=== PATIENT | female | born 1985 | race Two or more races ===

== ENCOUNTER 2016-07-03 09:23 | Emergency (ER) | payer BC ==
[2016-07-03 09:39] VITALS: RESP 18; O2SAT 95
--- NOTE | 2016-07-03 10:40 | UCPHY ---
H & P Patient Type: New Chief Complaint Nursing Narrative: SORE THROAT FOR 2 DAYS, DENIES FEVERS Time Seen by Provider: 07/03/16 10:28 HPI/ROS: CHIEF COMPLAINT: Sore throat HISTORY OF PRESENT ILLNESS: The patient is a 31-year-old healthy female who comes to the Urgent Care complaining of a sore throat for 5 days. She has not had a fever. No cough. No runny nose. Mild ear pain. No dyspnea. No chest pain no sick contacts. REVIEW OF SYSTEMS: Constitutional: denies: chills, fever, recent illness, recent injury EENTM: See HPI Respiratory: denies: cough, shortness of breath Cardiac: denies: chest pain, irregular heart rate, lightheadedness, palpitations Gastrointestinal/Abdominal: denies: abdominal pain, diarrhea, nausea, vomiting, blood streaked stools Genitourinary: denies: dysuria, frequency, hematuria, pain Musculoskeletal: denies: joint pain, muscle pain Skin: denies: lesions, rash, jaundice, bruising Neurological: denies: headache, numbness, paresthesia, tingling, dizziness, weakness Hematologic/Lymphatic: denies: blood clots, easy bleeding, easy bruising Immunologic/allergic: denies: HIV/AIDS, transplant EXAM: GENERAL: Well-appearing, well-nourished and in no acute distress. HEAD: Atraumatic, normocephalic. EYES: Pupils equal round and reactive to light, extraocular movements intact, sclera anicteric, conjunctiva are normal. ENT: Oropharynx erythematous with anterior cervical lymphadenopathy , mild bilateral tympanic membrane effusions NECK: Normal range of motion, supple without lymphadenopathy or JVD. LUNGS: Breath sounds clear to auscultation bilaterally and equal. No wheezes rales or rhonchi. HEART: Regular rate and rhythm without murmurs, rubs or gallops. ABDOMEN: Soft, nontender, normoactive bowel sounds. No guarding, no rebound. No masses appreciated. BACK: No CVA tenderness, no spinal tenderness, step-offs or deformities EXTREMITIES: Normal range of motion, no pitting or edema. No clubbing or cyanosis. NEUROLOGICAL: Cranial nerves II through XII grossly intact. Normal speech, normal gait. 5/5 strength, normal movement in all extremities, normal sensation PSYCH: Normal mood, normal affect. SKIN: Warm, dry, normal turgor, no visible rashes or lesions. Source: Patient Exam Limitations: No limitations - Personal History LMP (Females 10-55): 8-14 Days Ago - Medical/Surgical History Hx Asthma: No Hx Chronic Respiratory Disease: No Hx Diabetes: No Hx Cardiac Disease: No Hx Renal Disease: No Hx Cirrhosis: No Hx Alcoholism: No Other PMH: DENIES - Family History Significant Family History: No pertinent family hx - Social History Smoking Status: Never smoked Alcohol Use: Sober Drug Use: None Constitutional: Initial Vital Signs Temperature (C) 36.7 C 07/03/16 09:37 Heart Rate 77 07/03/16 09:37 Respiratory Rate 18 07/03/16 09:37 Blood Pressure 121/86 H 07/03/16 09:37 O2 Sat (%) 95 07/03/16 09:37 O2 Delivery Mode Room Air Allergies/Adverse Reactions: No Known Allergies Allergy (Unverified 07/03/16 10:45) Home Medications: Medication Instructions Recorded AZITHROMYCIN [Z-PACK] 250 mg PO DAILY #6 tab 07/03/16 Medical Decision Making ED Course/Re-evaluation: Patient's rapid strep is negative average her symptoms are classic for strep throat. She does not have any other obvious source. I will start her on azithromycin. She is aware that the PCR will return tomorrow and she may call for the results. Differential Diagnosis: Partial list of the Differential diagnosis considered include but were not limited to; strep throat, viral pharyngitis, upper respiratory tract infection and although unlikely based on the history and physical exam, I also considered pneumonia, bronchitis, meningitis, otitis media. I discussed these differential diagnoses and the plan with the patient as well as the usual and expected course. The patient understands that the diagnosis is provisional and that in medicine we are not always correct and that further workup is often warranted. Usual and customary warnings were given. All of the patient's questions were answered. The patient was instructed to return to the emergency department should the symptoms at all worsen or return, otherwise to followup with the physician as we discussed. - Data Points Laboratory Results: 07/03/16 07/03/16 Unknown 09:25 Group A Strep Screen NEGATIVE (NEGATIVE) Group A Strep DNA Pending Departure - Departure Disposition: Home, Routine, Self-Care Clinical Impression: Pharyngitis Qualifiers: Pharyngitis/tonsillitis etiology: unspecified etiology Qualified Code(s): J02.9 - Acute pharyngitis, unspecified Condition: Fair Instructions: Pharyngitis (ED) Referrals: Maria A Clifton MD [Medical Doctor] - As per Instructions Prescriptions: AZITHROMYCIN [Z-PACK] 250 mg PO DAILY #6 tab - PQRS PQRS Measurement: Not applicable
[2016-07-03 10:47] VITALS: BP 115/64; PULSE 71; TEMP 97.9
== END 2016-07-03 10:49 | disposition home or self-care (01) ==
LOC: CED 09:23
DX: J02.9 Acute pharyngitis, unspecified (principal)
CPT/HCPCS: 87880-PO; 99204-PO; G0463-PO

== ENCOUNTER 2018-01-23 17:00 | Inpatient (IN) | payer OTHER ==
--- NOTE | 2018-01-23 15:05 | PDGENHP ---
History and Physical - Chief Complaint IOL, new dx IUGR, abnormal dopplers - History of Present Illness Kaitlin is a 32 yo G1 at 39w3d by PRASANNA of 01/27/18 who I saw in clinic today regarding new diagnosis of IUGR by US today. Had been 19% at 20 wk US, repeated at 33 wks at stable at 18%. No plan to repeat but noted to be measuring small this week at 39 wk visit and US now shows EFW 3% with AC < 2% and elevated dopplers. Normal fluid, reassuring NST. I did recommend IOL given that she's > 39 wks. SCE two days ago FT and long. Otherwise feeling well. otherwise uncomplicated. labs: O Pos Antibody negative HIV/HepB/RPR neg Rubella IMMUNE Standard panel neg GC/C neg NIPT normal H/H 20 wks 12.4/33.5 Glucola 90 GBS negative Did get Flu shot and TDaP History Information - Allergies/Home Medication List Allergies/Adverse Reactions: No Known Allergies Allergy (Unverified 01/23/18 18:40) Home Medications: Calcium Carbonate [Tums 500MG (*)] PRN 01/23/18 [Last Taken 1 Day Ago ~01/22/18] Ferrous Sulfate [Slow Fe] 142 mg PO 01/23/18 [Last Taken 1 Day Ago ~01/22/18] No.137/Iron/Folic Acd [ Vitamin Tablet] 1 each PO 01/23/18 [ Last Taken 01/23/18] Psyllium Husk [Metamucil] 660 gm PO PRN 01/23/18 [Last Taken 01/23/18] I have personally reviewed and updated: family history, medical history, social history, surgical history - Past Medical History no pertinent PMH - Surgical History Reports: no pertinent surgical hx - Family History Positive for: non-pertinent - Social History Smoking Status: Never smoked Alcohol Use: None Review of Systems Review of Systems: ROS: 10pt was reviewed & negative except for what was stated in HPI & below Physical Exam Physical Exam: SCE closed/long/-2, very anterior cervix Constitutional: no apparent distress, appears nourished, not in pain Respiratory: no respiratory distress Skin: warm, normal color Musculoskeletal: full muscle strength Psychiatric: interacting appropriately Lab Data & Imaging Review 01/23/18 19:15 Assessment & Plan Assessment: 32 yo G1 at 39w3d presents for IOL due to new dx of IUGR w/ abnormal dopplers. IOL: - Cervidil placed at 1920, will be removed at 0600 and repeat SCE. Decision with BP re further ripening vs Pitocin. - GBS negative. - CEFM while ripening, also due to IUGR. Cat I tracing on arrival. - Open to epidural. - Rh pos, Rubella immune. JM
[2018-01-23] MEDS ORDERED: LR 1,000 ML IV PRN (18:39)
[2018-01-23] MEDS ORDERED: AMMONIA AROMATIC 1 EACH AMP IH PRN (18:39)
[2018-01-23] MEDS ORDERED: EPSOM SALT 454 GM TP PRN (18:39)
[2018-01-23] MEDS ORDERED: MISOPROSTOL 200 MCG TAB PO PRN (18:39)
[2018-01-23] MEDS ORDERED: DINOPROSTONE 10 MG VAG SUPP VG ONE (18:39)
[2018-01-23] MEDS ORDERED: IBUPROFEN 600 MG TAB PO PRN (18:39)
[2018-01-23] MEDS ORDERED: OXYTOCIN/RINGERS LACTATE 1,000 ML IV PRN (18:39)
[2018-01-23] MEDS ORDERED: LIDOCAINE 1% 300 MG/30 ML SDV SC PRN (18:39)
[2018-01-23] MEDS ORDERED: TERBUTALINE SULFATE 1 MG/ML VIAL IV PRN (18:39)
[2018-01-23] MEDS ORDERED: OLIVE OIL 118 ML BTL MISC PRN (18:39)
[2018-01-23 19:36] LABS: PLATELET COUNT 176 10^3/uL (150-400)
--- NOTE | 2018-01-24 09:54 | OBPROG ---
Labor Progress Note Assessment/Plan: Assessment: 32 y/o @ 39 4/7 IOL secondary to IUGR. Plan: Deleon placed easily this am. Will begin pitocin augmentation now and re check in several hours. status is reassuring. 01/24/18 09:54 Subjective/Intrapartum Course: 01/24/18 09:25 Pt rested overnight with the cervidil. She took a shower and had breakfast and is ready for this am. She denies ZUNIGA scotomata, abdominal pain and overall feels well. Good FM. Objective: 01/23/18 19:15 Patient ABO/Rh O POSITIVE 01/23/18 19:15 - SVE Dilation (cm): 1 Effacement (%): Less than 50 Station: -2 Membranes: Intact - Contraction Pattern Assessment Current Contraction Pattern: Irregular - FHR Assessment Ny FHR (bpm): 140 FHR Pattern Variability: Moderate FHR Category: 1 - Procedures Non-surgical Procedures: Other (Specify) (deleon catheter placed with sterile technique. 40 cc inter-uterine placed) - AP Antepartum Course: 01/24/18 09:28 No significant pre venkat risk factors until 39 5/7 weeks. Ultrasound demonstrated EFW < 3% with elevated dopplers > 90%. Decision made to proceed with IOL Oxytocin Orders Assessment - Pre-Induction/Augmentation Assessment Gestational Age: 39 week(s) and 3 day(s) ICD10 Worksheet Patient Problems: Problems Problem Status Onset IUGR (intrauterine growth restriction) affecting care of mother Acute - ICD10 Problem Qualifiers (1) IUGR (intrauterine growth restriction) affecting care of mother Qualifiers: Fetus number: single or unspecified fetus
[2018-01-24] MEDS ORDERED: LR 500 ML IV PRN (09:57)
[2018-01-24] MEDS ORDERED: OXYTOCIN/RINGERS LACTATE 500 ML IV SCH (10:00)
[2018-01-24] MEDS ORDERED: OLIVE OIL 118 ML BTL ONE (12:10)
[2018-01-24] MEDS ORDERED: LIDOCAINE 1% 300 MG/30 ML SDV ONE (12:10)
[2018-01-24] MEDS ORDERED: AMMONIA AROMATIC 1 EACH AMP IH ONE (12:11)
[2018-01-24] MEDS ORDERED: MISOPROSTOL 200 MCG TAB ONE (12:11)
[2018-01-24] MEDS ORDERED: TERBUTALINE SULFATE 1 MG/ML VIAL ONE (12:11)
--- NOTE | 2018-01-24 12:39 | OBPROG ---
Labor Progress Note Assessment/Plan: Assessment: 32 y/o @ 39 4/7 IOL secondary to IUGR. Plan: Good progress with deleon and pitocin. Now SROM and building a good contraction pattern. status is reassuring. 01/24/18 09:54 01/24/18 12:38 Subjective/Intrapartum Course: 01/24/18 09:25 Pt rested overnight with the cervidil. She took a shower and had breakfast and is ready for this am. She denies ZUNIGA scotomata, abdominal pain and overall feels well. Good FM. 01/24/18 12:37 Pt is beginning to feel stronger contractions especially when walking. She had SROM for clear fluid and deleon was drained and removed. Objective: 01/23/18 19:15 Patient ABO/Rh O POSITIVE 01/23/18 19:15 - SVE Dilation (cm): 3 Effacement (%): 75 Station: -2 Membranes: SROM, Intact Amniotic Fluid Color: Clear - Contraction Pattern Assessment Current Contraction Pattern: Irregular (Q 2-4) - FHR Assessment Ny FHR (bpm): 140 FHR Pattern Variability: Moderate FHR Category: 1 - Procedures Non-surgical Procedures: Other (Specify) (deleon catheter placed with sterile technique. 40 cc inter-uterine placed) - AP Antepartum Course: 01/24/18 09:28 No significant pre venkat risk factors until 39 5/7 weeks. Ultrasound demonstrated EFW < 3% with elevated dopplers > 90%. Decision made to proceed with IOL Oxytocin Orders Assessment - Pre-Induction/Augmentation Assessment Gestational Age: 39 week(s) and 3 day(s) ICD10 Worksheet Patient Problems: Problems Problem Status Onset IUGR (intrauterine growth restriction) affecting care of mother Acute - ICD10 Problem Qualifiers (1) IUGR (intrauterine growth restriction) affecting care of mother Qualifiers: Fetus number: single or unspecified fetus
--- NOTE | 2018-01-24 15:20 | OBPROG ---
Labor Progress Note Assessment/Plan: Assessment: 32 y/o @ 39 4/7 IOL secondary to IUGR. Plan: Contraction strength and pattern is building and pt is beginning to feel more intense contractions. IUPC placed to document contraction strength and intensity. Will continue to dose to appropriate levels. Epidural when she desires. 01/24/18 09:54 01/24/18 12:38 01/24/18 15:18 Subjective/Intrapartum Course: 01/24/18 09:25 Pt rested overnight with the cervidil. She took a shower and had breakfast and is ready for this am. She denies ZUNIGA scotomata, abdominal pain and overall feels well. Good FM. 01/24/18 12:37 Pt is beginning to feel stronger contractions especially when walking. She had SROM for clear fluid and deleon was drained and removed. 01/24/18 15:17 Pt is feeling stronger contractions and beginning to feel back pain. Still LOF clear. Objective: 01/23/18 19:15 Patient ABO/Rh O POSITIVE 01/23/18 19:15 - SVE Dilation (cm): 4 Effacement (%): 80 Station: -2 Membranes: SROM, Intact Amniotic Fluid Color: Clear - Contraction Pattern Assessment Current Contraction Pattern: Regular (Q 2-3), Irregular (Q 2-4) - FHR Assessment Ny FHR (bpm): 140 FHR Pattern Variability: Moderate FHR Category: 1 - Procedures Non-surgical Procedures: IUPC, Other (Specify) (deleon catheter placed with sterile technique. 40 cc inter-uterine placed) - AP Antepartum Course: 01/24/18 09:28 No significant pre risk factors until 39 5/7 weeks. Ultrasound demonstrated EFW < 3% with elevated dopplers > 90%. Decision made to proceed with IOL Oxytocin Orders Assessment - Pre-Induction/Augmentation Assessment Gestational Age: 39 week(s) and 3 day(s) ICD10 Worksheet Patient Problems: Problems Problem Status Onset IUGR (intrauterine growth restriction) affecting care of mother Acute - ICD10 Problem Qualifiers (1) IUGR (intrauterine growth restriction) affecting care of mother Qualifiers: Fetus number: single or unspecified fetus
[2018-01-24 16:06] LABS: PLATELET COUNT 180 10^3/uL (150-400)
[2018-01-24] MEDS ORDERED: fentaNYL 2MCG/ML/BUP 0.1% RTU 100 ML BAG EP ONE (16:43)
[2018-01-24] MEDS ORDERED: BUPIVACAINE 0.25% 30 ML SDV ONE (16:43)
[2018-01-24] MEDS ORDERED: PHENYLEPHRINE HCL 100 MCG/ML SYR ONE (16:43)
[2018-01-24] MEDS ORDERED: fentaNYL 100 MCG/2 ML INJ ONE (16:44)
[2018-01-24] MEDS ORDERED: PHENYLEPHRINE HCL 100 MCG/ML SYR IVP PRN (17:39)
[2018-01-24] MEDS ORDERED: ONDANSETRON 4 MG/2 ML VIAL IVP PRN (17:39)
--- NOTE | 2018-01-24 17:44 | PREANESOB ---
Obstetric Pre-Anesthesia Info - General Info Proposed Procedure: Labor and delivery with pitocin. : 1 Para: 0 PRASANNA: 01/27/18 Gestational Age: 39 week(s) and 3 day(s) - Info Status: Full Term Monitors: External FHR Baseline (bpm): 135 FHR Pattern: Reassuring - Labor Status Cervical Dilation per last OB SVE: 4 Station per last OB SVE: -2 Amniotic Fluid Color: Clear Pitocin: In Use PIH: Mild Indications for Labor Analgesia: Induction of Labor, Pain Control Labor Epidural: Proposed Anesthesia ROS: [place] teeth removed. Allergies/Adverse Reactions: Allergy/AdvReac Type Severity Reaction Status Date / Time No Known Allergies Allergy Unverified 01/23/18 18:40 Home Medications: Medication Instructions Recorded Calcium Carbonate [Tums 500MG (*)] PRN 01/23/18 Ferrous Sulfate [Slow Fe] 142 mg PO 01/23/18 No.137/Iron/Folic Acd 1 each PO 01/23/18 [ Vitamin Tablet] Psyllium Husk [Metamucil] 660 gm PO PRN 01/23/18 Visit Medications: Generic Name Dose Route Start Last Admin Trade Name Freq PRN Reason Stop Dose Admin Ammonia (Aromatic Spirit) 1 each 01/23/18 18:39 Ammonia Aromatic IH 02/02/18 18:38 ONCE PRN Fainting Lactated Ringer's 1,000 mls @ 0 mls/hr 01/23/18 18:39 01/24/18 10:10 Lr IV 01/24/18 18:38 1,000 mls PRN PRN Administration SEE PROTOCOL CONDITIONS Protocol Per Protocol Oxytocin/Lactated Ringer's 1,000 mls @ 0 mls/hr 01/23/18 18:39 Pitocin 20 Units/Lr (Premix) IV PRN PRN Post bleeding Per Protocol Lactated Ringer's 500 mls @ 500 mls/hr 01/24/18 09:57 Lr IV 01/25/18 09:58 PRN PRN Maternal Hypotension Oxytocin/Lactated Ringer's 500 mls @ 0 mls/hr 01/24/18 10:00 01/24/18 10:10 Pitocin 30 Units/Lr (Premix) IV 07/23/18 09:59 500 mls CONT ELXI Administration Protocol Per Protocol Ibuprofen 600 mg 01/23/18 18:39 Motrin PO ONCE PRN post , pain Lidocaine HCl 300 mg 01/23/18 18:39 Lidocaine Hcl 1% SC 07/22/18 18:38 ONCE PRN episiotomy Magnesium Sulfate 454 gm 01/23/18 18:39 Epsom Salt TP 07/22/18 18:38 Q1H PRN perineal discomfort Misoprostol 800 - 1,000 mcg 01/23/18 18:39 Cytotec PO 07/22/18 18:38 ONCE PRN Vaginal Atony/Bleeding Pendroy Oil 118 ml 01/23/18 18:39 Sweet Oil MISC 07/22/18 18:38 ONCE PRN perineal massage Terbutaline Sulfate 0.25 mg 01/23/18 18:39 Brethine IV 07/22/18 18:38 ONCE PRN Tachysystole Discontinued Medications Generic Name Dose Route Start Last Admin Trade Name Freq PRN Reason Stop Dose Admin Ammonia (Aromatic Spirit) Confirm 01/24/18 12:11 Ammonia Aromatic Administered 01/24/18 12:12 Dose 1 each IH .STK-MED ONE Bupivacaine HCl Confirm 01/24/18 16:43 Sensorcaine 0.25% Sdv Administered 01/24/18 16:44 Dose 30 ml .ROUTE .STK-MED ONE Dinoprostone 10 mg 01/23/18 18:39 01/23/18 19:17 Cervidil VG 01/23/18 18:40 10 mg ONCE ONE Administration Fentanyl Confirm 01/24/18 16:44 Sublimaze Administered 01/24/18 16:45 Dose 100 mcg .ROUTE .STK-MED ONE Fentanyl/Bupivacaine HCl Confirm 01/24/18 16:43 Fentanyl/Bupivacaine/Ns 2 Mcg/Ml 0.1% (Premix Administered 01/24/18 16:44 Dose 100 ml EP .STK-MED ONE Lidocaine HCl Confirm 01/24/18 12:10 Lidocaine Hcl 1% Administered 01/24/18 12:11 Dose 300 mg .ROUTE .STK-MED ONE Misoprostol Confirm 01/24/18 12:11 Cytotec Administered 01/24/18 12:12 Dose 1,000 mcg .ROUTE .STK-MED ONE Pendroy Oil Confirm 01/24/18 12:10 Sweet Oil Administered 01/24/18 12:11 Dose 118 ml .ROUTE .STK-MED ONE Phenylephrine HCl Confirm 01/24/18 16:43 Neosynephrine Administered 01/24/18 16:44 Dose 1,000 mcg .ROUTE .STK-MED ONE Terbutaline Sulfate Confirm 01/24/18 12:11 Brethine Administered 01/24/18 12:12 Dose 1 mg .ROUTE .STK-MED ONE - Anesthesia History Response to Local Anesthetics: Normal Anesthesia & Operative History: No Prior Problems Family Anesthesia History: Negative - Social History Substance Use/Abuse: Denies - Vital Signs Blood Pressure: 137/84 Heart Rate: 83 Height/Weight (Nursing): Height 154.94 cm Weight 68.946 kg - Focused Exam Neck exam: FROM Mallampati Score: Class 1 Mouth exam: normal dental/mouth exam Pulmonary: no respiratory distress Cardiovascular: regular rate and rhythym Labs: 01/24/18 15:45 01/24/18 15:45 Patient ABO/Rh O POSITIVE 01/23/18 19:15 Uric Acid 7.5 mg/dL (2.5-6.8) H 01/24/18 15:45 Total Bilirubin 0.4 mg/dL (0.1-1.4) 01/24/18 15:45 Conjugated Bilirubin 0.1 mg/dL (0.0-0.5) 01/24/18 15:45 Unconjugated Bilirubin 0.3 mg/dL (0.0-1.1) 01/24/18 15:45 AST 23 IU/L (14-46) 01/24/18 15:45 ALT 21 IU/L (9-52) 01/24/18 15:45 Lactate Dehydrogenase 364 IU/L (313-618) 01/24/18 15:45 - Plan Anesthetic Plan: MOISES Consent Signed and on Chart: Yes Patient/Guardian Understands and Agrees to Plan: Yes Urgent/Emergent Case: Dayanna pandey completed preop but documented later for safe timely pt care
--- NOTE | 2018-01-24 17:44 | POSTANESTH ---
Post Anesthetic Evaluation Cardiovascular Status: Normal, Stable, Similar to Pre-Op Cond Respiratory Status: Normal, Stable, Similar to Pre-op Cond. Level of Consciousness/Mental Status: Can Participate in Eval, Alert and Oriented Pain Control: Adequate, Prn Tx Ordered Nausea/Vomiting Control: Adequate, Prn Tx Ordered Complications Possibly Related to Anesthesia: None Noted
[2018-01-24] MEDS ORDERED: LR 500 ML IV SCH (18:00)
[2018-01-24] MEDS ORDERED: fentaNYL 2MCG/ML/BUP 0.1% RTU 100 ML EP SCH (18:00)
--- NOTE | 2018-01-24 20:13 | OBPROG ---
Labor Progress Note Assessment/Plan: Assessment: 32 y/o @ 39 4/7 IOL secondary to IUGR. Plan: Good cervical progress now and status reassuring. Some early decels and signs of descent. 01/24/18 09:54 01/24/18 12:38 01/24/18 15:18 01/24/18 20:07 Subjective/Intrapartum Course: 01/24/18 09:25 Pt rested overnight with the cervidil. She took a shower and had breakfast and is ready for this am. She denies ZUNIGA scotomata, abdominal pain and overall feels well. Good FM. 01/24/18 12:37 Pt is beginning to feel stronger contractions especially when walking. She had SROM for clear fluid and deleon was drained and removed. 01/24/18 15:17 Pt is feeling stronger contractions and beginning to feel back pain. Still LOF clear. 01/24/18 20:05 Pt is comfortable with her epidural. She is beginning to feel some pelvic pressure. Objective: 01/24/18 15:45 01/24/18 15:45 Patient ABO/Rh O POSITIVE 01/23/18 19:15 Uric Acid 7.5 mg/dL (2.5-6.8) H 01/24/18 15:45 Total Bilirubin 0.4 mg/dL (0.1-1.4) 01/24/18 15:45 Conjugated Bilirubin 0.1 mg/dL (0.0-0.5) 01/24/18 15:45 Unconjugated Bilirubin 0.3 mg/dL (0.0-1.1) 01/24/18 15:45 AST 23 IU/L (14-46) 01/24/18 15:45 ALT 21 IU/L (9-52) 01/24/18 15:45 Lactate Dehydrogenase 364 IU/L (313-618) 01/24/18 15:45 Temp Pulse Resp BP Pulse Ox 83 137/84 H 01/24/18 17:44 01/24/18 17:44 - SVE Dilation (cm): 7 Effacement (%): 90 Station: -1 Membranes: SROM, Intact Amniotic Fluid Color: Clear - Contraction Pattern Assessment Current Contraction Pattern: Regular (Q 2-3), Irregular (Q 2-4) - Procedures Non-surgical Procedures: IUPC, Other (Specify) (deleon catheter placed with sterile technique. 40 cc inter-uterine placed) - AP Antepartum Course: 01/24/18 09:28 No significant pre risk factors until 39 5/7 weeks. Ultrasound demonstrated EFW < 3% with elevated dopplers > 90%. Decision made to proceed with IOL Oxytocin Orders Assessment - Pre-Induction/Augmentation Assessment Gestational Age: 39 week(s) and 3 day(s) ICD10 Worksheet Patient Problems: Problems Problem Status Onset IUGR (intrauterine growth restriction) affecting care of mother Acute - ICD10 Problem Qualifiers (1) IUGR (intrauterine growth restriction) affecting care of mother Qualifiers: Fetus number: single or unspecified fetus
[2018-01-24] MEDS ORDERED: HYDROCODONE/APAP 5/325 TAB PO PRN (23:03)
[2018-01-24] MEDS ORDERED: HYDROCORTISONE 0.5% CREAM TP PRN (23:03)
[2018-01-24] MEDS ORDERED: SIMETHICONE 80 MG TAB CHEW PO PRN (23:03)
--- NOTE | 2018-01-24 23:07 | OBDEL ---
Info Type: Vaginal Presentation at Delivery: Vertex L&D Analgesia/Anesthesia Type: Epidural, Nitrous GBS+: No Intrapartum Medications: Generic Name Dose Route Start Last Admin Trade Name Frerafia PRN Reason Stop Dose Admin Oxytocin/Lactated Ringer's 500 mls @ 0 mls/hr 01/24/18 10:00 01/24/18 10:10 Pitocin 30 Units/Lr (Premix) IV 07/23/18 09:59 500 mls CONT LEXI Administration Protocol Per Protocol Discontinued Medications Generic Name Dose Route Start Last Admin Trade Name Frerafia PRN Reason Stop Dose Admin Dinoprostone 10 mg 01/23/18 18:39 01/23/18 19:17 Cervidil VG 01/23/18 18:40 10 mg ONCE ONE Administration Lactated Ringer's 1,000 mls @ 0 mls/hr 01/23/18 18:39 01/24/18 10:10 Lr IV 01/24/18 18:38 1,000 mls PRN PRN Administration SEE PROTOCOL CONDITIONS Protocol Per Protocol - Hospital Course Intrapartum: 01/24/18 09:25 Pt rested overnight with the cervidil. She took a shower and had breakfast and is ready for this am. She denies ZUNIGA scotomata, abdominal pain and overall feels well. Good FM. 01/24/18 12:37 Pt is beginning to feel stronger contractions especially when walking. She had SROM for clear fluid and deleon was drained and removed. 01/24/18 15:17 Pt is feeling stronger contractions and beginning to feel back pain. Still LOF clear. 01/24/18 20:05 Pt is comfortable with her epidural. She is beginning to feel some pelvic pressure. Indications for Delivery: Growth Restriction w/Abnormal Doppler studies Vaginal Delivery - Delivery Provider Delivery Physician/CNM: Meagan Payne - Labor and Delivery Onset of Contractions Date: 01/24/18 Onset of Contractions Time: 15:15 Onset of Contractions Type: Induced Rupture of Membranes Date: 01/24/18 Rupture of Membranes Time: 11:50 Rupture of Membranes Type: Spontaneous Amniotic Fluid Color: Clear Dilation Complete Date: 01/24/18 Dilation Complete Time: 22:01 Placenta Delivery Date: 01/24/18 Placenta Delivery Time: 22:37 Total Hours of Labor: 7 Non-surgical Procedures: IUPC, Other (Specify) (deleon catheter placed with sterile technique. 40 cc inter-uterine placed) Laceration: 2nd Degree Repair: 2-0, Vicryl Vaginal Sponge Count Correct: Yes Vaginal Needle Count Correct: Yes Vaginal Sweep Performed: Yes EBL: 200 Delivery Events: Nuchal Cord - Medications Labor Augmentation/Induction Methods Used: Pitocin, Deleon Bulb, Cervadil Labor Augmentation/Induction Indication: IUGR Data PRASANNA: 01/27/18 Gestational Age: 39 week(s) and 4 day(s) Ny Delivery Date: 01/24/18 Delivery Time: 22:30 Sex of Infant: Male Score (1 Min): 8 Score (5 Min): 8 ICD10 Worksheet Patient Problems: Problems Problem Status Onset IUGR (intrauterine growth restriction) affecting care of mother Acute (spontaneous vaginal delivery) Acute - ICD10 Problem Qualifiers (1) IUGR (intrauterine growth restriction) affecting care of mother Qualifiers: Fetus number: single or unspecified fetus (2) (spontaneous vaginal delivery)
[2018-01-25] MEDS: ACETAMINOPHEN 325 MG TAB PO SCH ×4 (03:05→18:10)
[2018-01-25] MEDS: IBUPROFEN 600 MG TAB PO SCH ×3 (05:57→18:14)
[2018-01-25] MEDS: DOCUSATE SODIUM 100 MG CAP PO PRN ×2 (10:15→18:14)
--- NOTE | 2018-01-25 10:37 | OBPP ---
Progress Note Assessment/Plan: Assessment: 32 G1 now P1 PPD#1 s/p after IOL for IUGR - doing well . Plan: Continue routine care. Fidelia Mejia MD, FACOG [facility] 01/25/18 13:32 Subjective/ Course: Pt doing well. Ambulating and voiding without difficulty. Pumping and trying to feed baby in NICU. Mod lochia. 01/25/18 13:33 Objective: 01/24/18 15:45 01/24/18 15:45 Patient ABO/Rh O POSITIVE 01/23/18 19:15 Uric Acid 7.5 mg/dL (2.5-6.8) H 01/24/18 15:45 Total Bilirubin 0.4 mg/dL (0.1-1.4) 01/24/18 15:45 Conjugated Bilirubin 0.1 mg/dL (0.0-0.5) 01/24/18 15:45 Unconjugated Bilirubin 0.3 mg/dL (0.0-1.1) 01/24/18 15:45 AST 23 IU/L (14-46) 01/24/18 15:45 ALT 21 IU/L (9-52) 01/24/18 15:45 Lactate Dehydrogenase 364 IU/L (313-618) 01/24/18 15:45 Temp Pulse Resp BP Pulse Ox 36.4 C 77 16 130/83 H 96 01/25/18 09:13 01/25/18 09:13 01/25/18 09:13 01/25/18 09:13 01/25/18 09:13 gen - pleasant, NAD, ambulating between her room and NICU room abd - soft, NT, fundus firm at u calves - NT, trace BLE edema Uterine Position/Fundal Height: At Umbilicus Uterine Tone: Firm
[2018-01-26] MEDS: IBUPROFEN 600 MG TAB PO SCH ×5 (01:43→19:50)
[2018-01-26] MEDS: ACETAMINOPHEN 325 MG TAB PO SCH ×3 (01:49→19:20)
[2018-01-26] MEDS: DOCUSATE SODIUM 100 MG CAP PO PRN (07:46)
[2018-01-26 12:50] VITALS: BP 137/92
--- NOTE | 2018-01-26 12:57 | OBPP ---
Progress Note Assessment/Plan: Assessment: 32 yo ppd# 2 s/p s/p iol for iugr at 39 weeks pumping/breast feeding borderline blood pressures o+/rubella immune discharge instructions baby in nicu - hypoglycemia Plan: 01/26/18 12:54 Subjective/ Course: Pt doing well. Ambulating and voiding without difficulty. Pumping and trying to feed baby in NICU. Mod lochia. 01/25/18 13:33 01/26/18 12:55 patient is doing well. pain is well controlled. working on pumping. milk hasnt come in yet. denies headache and changes in vision. mood good. getting rest. ambulating. voiding without difficulty. anxious to poop. Objective: 01/24/18 15:45 01/24/18 15:45 Patient ABO/Rh O POSITIVE 01/23/18 19:15 Uric Acid 7.5 mg/dL (2.5-6.8) H 01/24/18 15:45 Total Bilirubin 0.4 mg/dL (0.1-1.4) 01/24/18 15:45 Conjugated Bilirubin 0.1 mg/dL (0.0-0.5) 01/24/18 15:45 Unconjugated Bilirubin 0.3 mg/dL (0.0-1.1) 01/24/18 15:45 AST 23 IU/L (14-46) 01/24/18 15:45 ALT 21 IU/L (9-52) 01/24/18 15:45 Lactate Dehydrogenase 364 IU/L (313-618) 01/24/18 15:45 Temp Pulse Resp BP Pulse Ox 36.5 C 71 16 137/92 H 96 01/26/18 12:20 01/26/18 12:20 01/26/18 12:20 01/26/18 12:20 01/25/18 20:00 Physical Exam - Physical Exam EENT: PERRL/EOMI Neck: non-tender, full range of motion, supple Respiratory: chest non-tender, lungs clear, normal breath sounds, respiratory distress Cardiac/Chest: normal peripheral pulses, regular rate, rhythm Abdomen: normal bowel sounds, non-tender, other (fundus firm and non tender) Extremities: normal range of motion, non-tender, normal inspection, normal capillary refill, pedal edema Skin: normal color, warm/dry Neuro/Psych: no motor/sensory deficits, alert, normal mood/affect, oriented x 3
--- NOTE | 2018-01-26 13:00 | OBGCSDC ---
General Delivery Information - General Info : 1 Para: 1 Abortions: 0 Type: Vaginal L&D Analgesia/Anesthesia Type: Epidural, Nitrous Admission Date: 01/23/18 Labs: Patient ABO/Rh O POSITIVE 01/23/18 19:15 Hct 37.6 % (38.0-47.0) L 01/24/18 15:45 - Hospital Course Antepartum: 01/24/18 09:28 No significant pre risk factors until 39 5/7 weeks. Ultrasound demonstrated EFW < 3% with elevated dopplers > 90%. Decision made to proceed with IOL Intrapartum: 01/24/18 09:25 Pt rested overnight with the cervidil. She took a shower and had breakfast and is ready for this am. She denies ZUNIGA scotomata, abdominal pain and overall feels well. Good FM. 01/24/18 12:37 Pt is beginning to feel stronger contractions especially when walking. She had SROM for clear fluid and deleon was drained and removed. 01/24/18 15:17 Pt is feeling stronger contractions and beginning to feel back pain. Still LOF clear. 01/24/18 20:05 Pt is comfortable with her epidural. She is beginning to feel some pelvic pressure. : Pt doing well. Ambulating and voiding without difficulty. Pumping and trying to feed baby in NICU. Mod lochia. 01/25/18 13:33 01/26/18 12:55 patient is doing well. pain is well controlled. working on pumping. milk hasnt come in yet. denies headache and changes in vision. mood good. getting rest. ambulating. voiding without difficulty. anxious to poop. Vaginal - Delivery Provider Delivery Physician/CNM: Meagan Payne - Diagnosis Labor: Induced Rupture of Membranes Type: Spontaneous Amniotic Fluid Color: Clear Laceration: 2nd Degree Repair: 2-0, Vicryl Delivery Events: Nuchal Cord - Procedures Non-surgical Procedures: IUPC, Other (Specify) (deleon catheter placed with sterile technique. 40 cc inter-uterine placed) - Delivery Non-surgical Procedures: IUPC, Other (Specify) (deleon catheter placed with sterile technique. 40 cc inter-uterine placed) EBL: 200 Data PRASANNA: 01/27/18 Gestational Age: 39 week(s) and 6 day(s) [place] Delivery Date: 01/24/18 Delivery Time: 22:30 Sex of : Male Weight (gm): 2272 kg Score (1 Min): 8 Score (5 Min): 8 Discharge Information - Discharge Information Condition: Good Instruction/Follow Up: One Week (blood pressure check), Four Weeks (post wellness mood ), Six Weeks (post visit)
== END 2018-01-26 19:53 | disposition home or self-care (01) | DRG 807 ==
LOC: FLD 18:02 → FOB 01-25 02:28
PROVIDERS: ADMIT Obstetrics & Gynecology; ATTEND Obstetrics & Gynecology
PROC: 0U7C7ZZ Dilation of Cervix, Via Natural or Artificial Opening (ICD-10-PCS; 2018-01-23)
PROC: 3E033VJ Introduction of Other Hormone into Peripheral Vein, Percutaneous Approach (ICD-10-PCS; 2018-01-23)
PROC: 0KQM0ZZ Repair Perineum Muscle, Open Approach (ICD-10-PCS; principal; 2018-01-24)
PROC: 10E0XZZ Delivery of Products of Conception, External Approach (ICD-10-PCS; principal; 2018-01-24)
DX: O36.5930 Maternal care for other known or suspected poor fetal growth, third trimester, not applicable or unspecified (principal); Z37.0 Single live birth; Z3A.39 39 weeks gestation of pregnancy; O70.1 Second degree perineal laceration during delivery
CPT/HCPCS: J2370; J2590; J3010; J3105

== ENCOUNTER → 2018-02-28 | Outpatient (CLI) | payer OTHER | LOC: FLACT 09:41 | PROVIDERS: ATTEND Obstetrics & Gynecology | DX: Z39.1 Encounter for care and examination of lactating mother (principal) | CPT/HCPCS: G0463 ==